=== PATIENT | male | born 1965 | race Caucasian/White ===

== ENCOUNTER 2025-03-21 11:24 | Emergency (ER) | payer OTHER, SELFPAY ==
[2025-03-21 11:26] VITALS: BP 185/105; PULSE 80; RESP 14; TEMP 36.6; O2SAT 96
[2025-03-21 11:35] VITALS: BP 185/105; PULSE 80; RESP 14; TEMP 36.6; O2SAT 96
[2025-03-21] MEDS: Tetracaine 0.5% 4 ML BTL OP (12:55)
[2025-03-21] MEDS: Fluorescein STRIPS 100/BOX 1 MG OP (12:55)
[2025-03-21] MEDS: Erythromycin Ophth Oint 3.5 GM TUBE OD (13:43)
[2025-03-21 13:50] VITALS: BP 181/101; PULSE 80; RESP 14; TEMP 36.6; O2SAT 96
--- NOTE | 2025-03-21 14:12 | ED.GENADUL_ITS ---
Discharge Plan Disposition Patient Disposition: Home Discharge Details Clinical Impression: Abrasion, corneal Primary Care Provider: None,None ED Provider: Karlee Obregon Home Meds and New Rx's Prescriptions: No Action No Known Home Meds Discharge Instructions Instructions: Corneal Abrasion ED Additional Instructions: Apply erythromycin ointment half-inch strip to your lower eyelid 3 times daily Follow-up with [facility] eye care center tomorrowFollow-up with [facility] eye care center tomorrow which should be eye care center [phone] Refrain from rubbing your eye is much as possible You may use lubricating eyedrops Please return should you develop vision change, or with any new or worsening complaints HPI General Date/Time Provider Initiated Documentation: 03/21/25 12:34 . HPI Narrative: This 59-year-old male presents with injury to right thigh. He picked up a rack that was on the ground in the [employer] shop and wiped his face. He felt something go into his eye. He was not wearing any corrective lenses at that time. He wears reading glasses only. Immunizations are up-to-date. Event occurred just prior to arrival states he had tearing and irritation but did not see an obvious foreign body. Related Data Home Medications ?Medication ?Instructions ?Recorded ?Confirmed Unknown [No Known Home Meds] 10/04/17 0 03/21/25 Allergies Allergy/AdvReac Type Severity Reaction Status Date / Time No Known Allergies Allergy Unverified 03/21/25 11:34 General Stated Complaint: EyeProblem LAVON: 4 Exam Narrative Exam Narrative: Alert and oriented gentleman with injected right cornea, at the 12 o'clock position there is a 4 mm x 2 mm abrasion, there is another 2 x 2 mm abrasion there is no surrounding lids were everted without foreign body Course Vital Signs Vital signs: Vital Signs Temperature 36.6 C 03/21/25 11:26 Pulse 80 03/21/25 11:26 Respiratory Rate 14 03/21/25 11:26 Blood Pressure 185/105 H 03/21/25 11:26 Pulse Oximetry 96 03/21/25 11:26 Temperature 36.6 C 03/21/25 13:50 Temperature Source Oral 03/21/25 11:35 Pulse 80 03/21/25 13:50 Respiratory Rate 14 03/21/25 13:50 Blood Pressure 181/101 H 03/21/25 13:50 Blood Pressure Position Sitting 03/21/25 11:35 Pulse Oximetry 96 03/21/25 13:50 Pain Level 0 03/21/25 11:26 Medical Decision Making 59-year-old male presenting with foreign body concern in right eye with injection, 2 corneal abrasions noted. Lids everted without foreign body. Visual acuity 20/50 left eye, 20/50 both eyes, 20/200 right eye uncorrected. I do not see an obvious foreign body on my assessment pupils equal round reactive to light and accommodation negative Renetta sign. Low suspicion clinically for globe rupture. Will refer for urgent evaluation at should be sec ondary to size of corneal abrasion. Patient discharged home with erythromycin ointment. Return precautions reviewed and patient expressed understanding ON LICENSE OF [facility] All Active Problems (Updated 03/21/25 @ 13:38 by OLIVIA Cannon) Abrasion, corneal (Acute) Social History Smoking/Tobacco Use Status: Former Tobacco Use Smoking risk assessment performed?: Yes Alcohol Intake: current Alcohol Intake frequency: a few times a month Alcohol type: beer Substance use type: does not use Do you feel safe in your relationship?: Yes PAWSS Have you Been Recently Intoxicated or Drunk Within the Last 30 days?: No Have you Ever Experienced Previous Episodes of Alcohol Withdrawal?: No Have you ever Experienced Withdrawal Seizures?: No Have you ever Experienced Delirium Tremens(DT)s?: No Have you ever undergone Alcohol Rehabilitation Treatment (i.e, inpt ot outpatient treatment programs)?: No Have you ever Experienced Blackouts?: No Have you ever Combined Alcohol with other Downers within the last 90 days?: No Have you ever Combined Alcohol with any other Substance of Abuse during the last 90 days?: No Positive Blood Alcohol level on Presentation? [PCS.BAL]: No Evidence of Increased Autonomic Activity (i.e. HR>120, tremor, sweating, agitation, nausea)?: No Result: 0
== END 2025-03-21 14:04 | disposition home or self-care (01) ==
PROVIDERS: Emergency Provider Physician Assistant
DX: S05.01XA Injury of conjunctiva and corneal abrasion without foreign body, right eye, initial encounter (principal); X58.XXXA Exposure to other specified factors, initial encounter; Y99.0 Civilian activity done for income or pay
CPT/HCPCS: 99283 ×2